=== PATIENT | female | born 1980 | race Caucasian/White ===

== ENCOUNTER → 2022-09-10 10:36 | Outpatient (CLI) | payer OTHER, SELFPAY ==
--- NOTE | ~2022-09-10 | MM_ITS ---
EXAMINATION: MM scrn xuan implant BI w annita HISTORY: Screening mammogram TECHNIQUE: Craniocaudal and mediolateral oblique 3-D tomosynthesis images with implant displacement a nd synthetic 2-D images were generated. Craniocaudal and mediolateral oblique views of the breasts wi thout implant displacement were obtained using full field digital mammography. CAD analysis was submi tted and interpreted. COMPARISON: No prior mammogram is available for comparison at this institution. BREAST PARENCHYMAL COMPOSITION: The breasts are heterogeneously dense, which may obscure small masses . FINDINGS: There is no evidence of suspicious mass, calcification, or architectural distortion to sugg est malignancy in either breast. There has been no suspicious interval change. IMPRESSION: 1. No mammographic evidence of malignancy. 2. Recommend routine screening mammography in one year. BI-RADS Category 1: Negative Reviewed, dictated and finalized at location A.
== END ==
PROVIDERS: PCP Family Medicine; Visit Provider Nurse Practitioner Family
DX: Z12.31 Encounter for screening mammogram for malignant neoplasm of breast (principal)
CPT/HCPCS: 77063; 77067

== ENCOUNTER 2023-07-18 10:50 | Emergency (ER) | payer OTHER, SELFPAY ==
--- NOTE | ~2023-07-18 | XR_ITS ---
XR ankle LT min 3V DATE: 07/18/2023 11:16 INDICATION: Injury one day ago. Lateral ankle pain. TECHNIQUE: 4 views COMPARISON: None FINDINGS: No fracture or dislocation of the ankle or disruption of the ankle mortise. No periosteal r eaction or bone destruction. Slight posterior calcaneal enthesopathy. IMPRESSION: No fracture Reviewed, dictated and finalized at location A. TRO MECHANICAL SOLAR TECHNICIAN IMPRESSION: No fracture
[2023-07-18 10:56] VITALS: BP 130/84; PULSE 96; RESP 18; TEMP 36; O2SAT 100
--- NOTE | 2023-07-18 11:35 | ED.GENADULT ---
HPI - General Adult General Chief complaint: Extremity Injury, Lower Stated complaint: left ankle injury Time Seen by Provider: 07/18/23 10:57 Source: patient Mode of arrival: ambulatory Limitations: no limitations History of Present Illness HPI narrative: This is a 43-year-old female who is presenting to the ED for chief complaint of left ankle injury that occurred last night. Reports that she was moving a dresser and accidentally stumbled wall stairs. She feels that she may have rolled her ankle. Endorses swelling and bruising. Pain continues despite ice and ibuprofen. Denies any further sites of pain or injury. Denies numbness, weakness Related Data Home Medications Medication Instructions Recorded Confirmed tocilizumab 162 mg/0.9 mL 162 mg subcut .Biweekly 03/14/22 07/14/23 subcutaneous pen injector (Actemra ACTPen) Allergies Allergy/AdvReac Type Severity Reaction Status Date / Time No Known Allergies Allergy Verified 07/18/23 11:03 Review of Systems Review of Systems: All systems as dictated in HPI [facility] Past Medical History Medical History (Updated 07/18/23 @ 12:24 by Dionisio Trinidad PA-C) Bacterial conjunctivitis of left eye Bilateral hand numbness Bilateral hand swelling BMI 21.0-21.9, adult BMI 22.0-22.9, adult HPV test positive (~2014) Influenza Neck pain Rheumatoid arthritis of unspecified site with involvement of other organs and systems Screening for diabetes mellitus Screening for thyroid disorder Screening, lipid Swollen R knee URI, acute Vitamin D deficiency Surgical History Surgical History H/O LEEP (06/16/08) LEEP bx -hpv H/O right breast biopsy (11/09/12) right breast biopsy benign History of colposcopy (10/16/14) colposcopy bx / benign History of gynecological procedure (10/18/14) paragard insertion History of gynecological procedure (05/17/14) iud removal History of orthopedic surgery (04/21/17) right knee History of orthopedic surgery (05/11/03) right shoulder History of orthopedic surgery (05/11/97) right and left knee S/P breast biopsy, left (05/11/08) left breast bopsy Benign S/P breast biopsy, right (07/17/15) right breast lump removed- benign Family History Family History Father Cerebrovascular accident Mother Rheumatoid arthritis Sibling No problems noted. Grandparent Carcinoma of colon maternal grandmother Social History Social History Smoking status: Former smoker Tobacco type: cigarettes Second hand tobacco smoke exposure: No Smoking end date: 09/09/15 Alcohol intake: current Drinks per week: 5 Substance use: never Substance use type: does not use Do You Feel Safe in your Home?: Yes Lack of Transportation: No Lack of Food: Never True Current Housing: I Have Housing Concerned About Future Housing: No Difficulty Paying Gas/Electric Bills: No Difficulty Paying for Meds: No Currently Unemployed: No Education: Bachelor's Degree Difficulty w/ Childcare or Family Care: No Living arrangements: with family Additional living arrangements comments: Occupation/Education: occupation 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 Gender identity (if verbalized by the patient): Female Sexual Orientation (if Verbalized by the Patient): Straight or Heterosexual Exam Narrative: GENERAL: Well-appearing, well-nourished, and in no acute distress. MSK: Mild swelling and bruising to the left ankle joint. Tenderness laterally to the left ankle joint. No tenderness or swelling throughout the foot. Neurovascularly intact distally SKIN: Mild ecchymosis to the left ankle. No rash or wounds. NEURO: Alert and oriented x3. No focal deficits. PSYCH: Normal mood and affect. Co
[2023-07-18] MEDS: KETOROLAC 30 MG/ML VIAL (*BKC) IM (11:41)
--- NOTE | 2023-07-18 11:46 | PC.NURSE ---
pt brought their own crutches and sharath wrap today. no need to charge pt for crutches or sharath wrap
[2023-07-18 12:35] VITALS: BP 116/73; PULSE 62; RESP 18; TEMP 36.8; O2SAT 100
== END 2023-07-18 12:28 | disposition home or self-care (01) ==
PROVIDERS: Emergency Provider Physician Assistant; PCP Family Medicine
DX: S93.402A Sprain of unspecified ligament of left ankle, initial encounter (principal); S96.912A Strain of unspecified muscle and tendon at ankle and foot level, left foot, initial encounter; Z87.891 Personal history of nicotine dependence; X50.0XXA Overexertion from strenuous movement or load, initial encounter
CPT/HCPCS: 73610; 96372; 99283; J1885

== ENCOUNTER 2023-10-06 09:13 | Outpatient (CLI) | payer OTHER, SELFPAY ==
--- NOTE | ~2023-10-06 | MM_ITS ---
EXAMINATION: MM scrn xuan implant BI w annita HISTORY: Screening mammogram TECHNIQUE: Craniocaudal and mediolateral oblique 3-D tomosynthesis images with implant displacement a nd synthetic 2-D images were generated. Craniocaudal and mediolateral oblique views of the breasts wi thout implant displacement were obtained using full field digital mammography. CAD analysis was submi tted and interpreted. COMPARISON: 09/11/2023. BREAST PARENCHYMAL COMPOSITION: Dense: The breasts are heterogeneously dense, which may obscure small masses FINDINGS: There is no evidence of suspicious mass, calcification, or architectural distortion to sugg est malignancy in either breast. There has been no suspicious interval change. IMPRESSION: 1. No mammographic evidence of malignancy. 2. Recommend routine screening mammography in one year. BI-RADS Category 1: Negative Reviewed, dictated and finalized at location B.
== END 2023-10-06 09:14 | disposition home or self-care (01) ==
PROVIDERS: PCP Family Medicine; Visit Provider Obstetrics & Gynecology
DX: Z12.31 Encounter for screening mammogram for malignant neoplasm of breast (principal)
CPT/HCPCS: 77063; 77067

== ENCOUNTER 2025-01-11 16:01 | Outpatient (CLI) | payer OTHER, SELFPAY ==
--- OUTSIDE RECORDS SUMMARY | 2008-10-11 05:00 | XMS_ITS | Continuity of Care Document ---
Author Organization [facility] [address] [place] [address] [facility] [address] [place] [address] Phone Care Team Providers Care Excelsior Picker Name Role Phone LuisTommy craig Unavailable Unavailable Procedures Procedure Date Eye Exam, New Patient Advance Directives Directive Yes / No Effective Date File Name No Information Encounters Encounter Description Practice Location Reason(s) For Visit Diagnoses Date Provider Providers Copied on Encounter [facility], [address] [place] [address] [address], [place], [place], [id number], [place] tel:[phone] [facility] No Information 3-200 9 Yasmany Tommy. [address] [facility] [facility] [address], [place], [address], [place]. tel:[phone] Family History Family Member Type Diagnosis Age At Onset No Information Payers Payer name Insurance type Covered green party ID Authoriza tion(s) [facility] Out Of State [id number] Social History Type Description Quantity Date Captured Comments Sex Female Smoking Status No Information Chief Complaint And Reason For Visit No Information Reason For Referral Reason For Referral No Information History Of Present Illness Encounter Date Complaint History Of Prese nt Illness No Information Functional Status Date Functional Assessmen t No Information Instructions Date Instruction Additional Infor mation No Information Assessments Type Assessment Date No Information Patient Care Teams Name Effective Dates (start - stop) Status Members No Information
--- OUTSIDE RECORDS SUMMARY | 2017-08-31 11:06 | XMS_ITS | Continuity of Care Document ---
Author Organization [facility] Address [address] [place] [address] [address] [place] [address] Phone Care Team Providers Care Director Of Corporate Marketing Name Role Phone Ted Armijo PT Unavailable Unavailable Procedures Procedure Date Therapeutic Exercise Therapeutic Activities Therapeutic Exercise Therapeutic Activities Neuromuscular Re-Ed Therapeutic Exercise Therapeutic Activities Neuromuscular Re-Ed Manual Therapy Therapeutic Exercise Therapeutic Activities Neuromuscular Re-Ed Manual Therapy Therapeutic Exercise Therapeutic Activities Neuromuscular Re-Ed Manual Therapy Therapeutic Exercise Therapeutic Activities Neuromuscular Re-Ed Manual Therapy Therapeutic Exercise Therapeutic Activities Neuromuscular Re-Ed Manual Therapy Hot or Cold Pack Therapeutic Exercise Therapeutic Activities Neuromuscular Re-Ed Manual Therapy Therapeutic Exercise Therapeutic Activities Neuromuscular Re-Ed Manual Therapy Hot or Cold Pack Progress Note Therapeutic Exercise Neuromuscular Re-Ed Manual Therapy Hot or Cold Pack Electrical Stimulation Therapeutic Exercise Neuromuscular Re-Ed Manual Therapy Hot or Cold Pack Progress Note Therapeutic Exercise Therapeutic Activities Neuromuscular Re-Ed Manual Therapy Hot or Cold Pack Therapeutic Exercise Neuromuscular Re-Ed Manual Therapy Hot or Cold Pack Therapeutic Exercise Therapeutic Activities Neuromuscular Re-Ed Manual Therapy Hot or Cold Pack Therapeutic Exercise Neuromuscular Re-Ed Manual Therapy Hot or Cold Pack Electrical Stimulation Therapeutic Exercise Neuromuscular Re-Ed Manual Therapy Hot or Cold Pack Electrical Stimulation Therapeutic Exercise Neuromuscular Re-Ed Manual Therapy Hot or Cold Pack Electrical Stimulation PT Evaluation Low Complexity Therapeutic Exercise Manual Therapy Hot or Cold Pack Electrical Stimulation Advance Directives Directive Yes / No Effective Date File Name No Information Encounters Encounter Description Practice Location Reason(s) For Visit Diagnoses Date Provider Providers Copied on Encounter [facility] [employer] [address], [place], [place], [id number], [place] tel:[phone] [place] No Information 8 melida Ted. [address] [facility], [address], [place], [address], [place]. tel: [phone] [facility], [place], [place], [address], tel:[phone] [place] No Information Mar-0 8-201 8 Thuet Ted. [address] [place] [address], [address], [place], [place], [facility], . tel:[phone] Referring Provider: Tyler Quijano [facility], [place], [address]. tel:[phone] [place] [address], [address] [place], [place] [address], [place], [place], [address], tel:[phone] [place] No Information Mar-0 6-201 8 Thuet Ted. [address] [place] [address], [address], [place], [place], [facility], . tel:[phone] Referring Provider: Tyler Quijano [facility], [place], [address]. tel:[phone] [place] [address], [address] [place], [place] [address], [place], [place], [address], [place] tel:[phone] [place] No Information Mar-0 1-201 8 Thuet Ted. [address] [place] [address], [address], [place], [facility], [place]. tel:[phone] Referring Provider: Tyler Quijano [facility], [place], [address]. tel:[phone] [place] [address], [address] [place], [place] [address], [place], [place], [address], [place] [phone] [place] No Information Feb-2 7-201 8 Thuet Ted. [address] [place] [address], [address], [place], [facility], [place]. tel:[phone] Referring Provider: Tyler Quijano [facility], [place], [address]. tel:[phone] [place] [address], [address] [place], [place] [address], [place], [address], [place] tel:[phone] [place] No Information Feb-2 3-201 8 Thuet Ted. [address] [place] [address], [address], [place], [facility], [place]. tel: [phone] Referring Provider: Jono Yousif, [address] [facility], [place], [address]. tel:[phone] [place], [place] [address], [place], [place], [address], tel:[phone] [place] No Information Feb-2 1-201 8 Thuet Ted. [address] [place] [address], [address], [place], [facility], . tel: [phone] Referring Provider: Jono Yousif, [address] [facility], [place], [address]. tel:[phone] [place], [place] [address], [place], [place], [address], [phone] [place] No Information Feb-1 2-201 8 Thuet Ted. [address] [place] [address], [address], [place], [facility], . tel: [phone] Referring Provider: Jono Yousif, [address] [facility], [place], [address]. tel:[phone] [place], [place] [address], [place], [place], [address], tel:[phone] [place] No Information Feb-0 9-201 8 Thuet Ted. [address] [place] [address], [address], [place], [facility], . tel: [phone] Referring Provider: Jono Yousif, [address] [facility], [place], [address]. tel:[phone], [place], [address], tel:[phone] [place] No Information Feb-0 6-201 8 Thuet Ted. [address] [place] [address], [address], [place], [facility], . tel: [phone] Referring Provider: Dawna Quijano1 [place], [address]. tel:[phone] [place] [address] [facility] [address], [place], [place], [address], [place] tel:[phone] [place] No Information 8 Thuet Ted. [address] [place] [address], [address], [place], [address], . tel: [phone] Referring Provider: Jono Yousif, yTler [facility], [place], [address]. tel:[phone] [place] [address] [address], [place], [place], [address], [place] tel:[phone] [place] No Information 8 Thuet Ted. [address] [place] [address], [address], [place], [address], . tel: [phone] Referring Provider: Tyler Quijano [facility], [place], [address]. tel:[phone] [place] [address] [address], [place], [place], [address], [place] tel:[phone] [place] No Information 8 Thuet Ted. [address] [place] [address], [address], [place], [address], . tel: [phone] Referring Provider: Tyler Quijano [facility], [place], [address]. tel:[phone] [place] [id number] [address], [place], [place], [address], [place] tel:[phone] [place] No Information 8 Thuet Ted. [address] [place] [address], [address], [place], [address], . tel: [phone] Referring Provider: Tyler Quijano [facility], [place], [address]. tel:[phone] [place], [place] [address] [address], [place], [address], [place] tel:[phone] [place] No Information 8 Thuet Ted. [address] [facility], [address], [place], [facility], . tel: [phone] Referring Provider: Jono Yousif, Tyler [facility], [place], [address]. tel:[phone] [place] [address] [address] [facility] [address], [place], [place], [address], [place] tel:[phone] [place] No Information 8 Thuet Ted. [address] [place] [address], [address], [place], [facility], . tel: [phone] Referring Provider: Jono Yousif, [place], [address]. tel:[phone] [place] [address] [address] [address], [place], [place], [address], tel:[phone] [place] No Information 8 Thuet Ted. [address] [place] [address], [address], [place], [address], . tel:[phone] Referring Provider: Jono Yousif, [place], [address]. tel:[phone] [place] [address] [address], [place], [place], [address], [place] tel:[phone] [place] No Information 8 Thuet Ted. [address] [place] [address], [address], [place], [address], [place]. tel:[phone] Referring Provider: [place], [address]. tel:[phone] [place] [address], [address], [place], [place], [address], [place] [phone] [place] Oth tear of medial meniscus, current injury, r knee, subsPain in right kneeEffusion, right kneeStiffness of right knee, not elsewhere classifiedMuscle weakness (generalized)Enco unter for other specified surgical aftercareOther abnormalities of gait and mobility 8 Zofia Jean. [address] [facility], [address], [place], [address], [place]. tel: [phone] Referring Provider: Jono Yousif, [facility], [facility] [place], [address]. tel:[phone] Family History Family Member Type Diagnosis Age At Onset No Information Payers Payer name Insurance type Covered green party ID Authoriza tion(s) [facility] CI [id number] Social History Type Description Quantity Date Captured [...]
--- NOTE | ~2025-01-11 | MM_ITS ---
EXAMINATION: MM scrn xuan implant BI w annita HISTORY: Screening TECHNIQUE: Craniocaudal and mediolateral oblique 3-D tomosynthesis images were obtained and synthetic 2-D images were generated. CAD analysis was submitted and interpreted. Implant displacement views were obtained. COMPARISON: No prior mammogram is available for comparison at this institution. BREAST PARENCHYMAL COMPOSITION: The breasts are heterogeneously dense, which may obscure small masses. FINDINGS: There is no evidence of suspicious mass, calcification, or architectural distortion to suggest malignancy. There has been no suspicious interval change. Grossly stable bilateral breast implants. IMPRESSION: 1. No mammographic evidence of malignancy. Recommend routine screening mammography in one year. BI-RADS Category 2: Benign finding(s) Reviewed, dictated and finalized at location Q. IMPRESSION: 1. No mammographic evidence of malignancy. Recommend routine screening mammogra phy in one year. BI-RADS Category 2: Benign finding(s)
--- OUTSIDE RECORDS SUMMARY | 2025-01-11 17:07 | XMS_ITS | Clinical Summary ---
Author Organization [facility] Address [address] [place] [address] Care Team Providers Care Valuer Name Role Phone Brandon Scales MD Primary Care Provider [phone] Medications predniSONE 10 mg tablet Tapering Dose; 60 mg Day 1 50 mg Day 2 40 mg Day 3 30 mg Day 4 20 mg Day 5 10 mg Day 6 21 tablet 03/30/2017 Active Social History Tobacco Use Types Packs/Day Years Used Date Smoking Tobacco: Never Assessed Comments Unknown Sex and Gender Information Value Date Recorded Sex Assigned at Not on file Legal Sex Female 6:06 PM CDT Gender Identity Not on file Sexual Orientation Not on file Last Filed Vital Signs Vital Sign Reading Time Taken Comments Blood Pressure 158/94 03/30/2017 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 Pulse 102 03/30/2017 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 Temperature 36.5 C (97.7 F) 03/30/2017 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 Respiratory Rate 20 03/30/2017 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 Oxygen Saturation 100% 03/30/2017 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 Inhaled Oxygen Concentration - - Weight 56.7 kg (125 lb) 03/30/2017 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 Height 165.1 cm (5' 5) 03/30/2017 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 Body Mass Index 20.8 03/30/2017 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 Plan of Treatment Health Maintenance Due Date Last Done Comments Cervical Cancer Screening Pa p Smear (Age 30 to 64) Every 3 Years 1981 Annual Physical 1984 Hepatitis C 07/14/1999 DTaP, Tdap and Td Vaccines ( 1 - Tdap) 2000 Hepatitis B Vaccines (1 of 3 - 19+ 3-dose series) 2000 HPV Vaccines (1 - 3-dose SCD M series) 2008 Cervical Cancer Screening Pa p with HPV Testing (Age 30 to 64) Every 5 Years 07/14/2011 Cervical Cancer Screening with HPV 07/14/2011 Mammogram Screening 2021 COVID-19 Vaccine (1 - 2023-2 5 season) 2025 Meningococcal B Vaccine Aged Out No l onger eligible based on patient's age to complete this topic Meningococcal Vaccine Aged Out No tory gonzalez eligible based on patient's age to complete this topic Pneumococcal Vaccine: Pediat rics (0 to 5 Years) and At-Risk Patients (6 to 49 Years) Aged Out No longer eligible b ased on patient's age to complete this topic RSV Immunizations Under 20 Months Aged Out No longer eligible based on patient's age to complete this topic Insurance Care Teams Valuer Relationship Specialty Start Date End Date Brandon Scales MD [address] [place], [place] [id number] PCP - General FAMILY PRACTICE 03/30/17
--- OUTSIDE RECORDS SUMMARY | 2025-01-11 17:07 | XMS_ITS | Encounter Summary ---
Author Organization [facility] Address [address] [facility] [place] [address] Care Team Providers Care Recovery Coordinator Name Role Phone Jennifer Guzman MD Primary Care Provider Encounter Details Date Type Department Care Team (Late st Contact Info) Description 02/11/2022 Lab Requisition [facility] [address] [facility] [place] [place] [id number] Troy Raymundo MD [address] [facility] [place] [address] Social History Tobacco Use Types Packs/Day Years Used Date Smoking Tobacco: Former Cigarettes Alcohol Use Standard Drinks/Week Comments Yes 0 (1 standard drink = 0.6 oz pur e alcohol) Comments Unknown Sex and Gender Information Value Date Recorded Sex Assigned at Not on file 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 Gender Identity Not on file Sexual Orientation Not on file documented as of this encounter Plan of Treatment Not on file documented as of this encounter Procedures Procedure Name Priority Date/Time Associated Diagnosis Comments DERMATOPATHOLOGY Routine 02/10/2022 12:0 0 AM CDT documented in this encounter Results * DERMATOPATHOLOGY (02/10/2022 12:00 AM CDT) Case Report Dermatopathology Report Case: [id number] Authorizing Provider: Troy Raymundo MD Collected: 02/10/2022 12:00 AM Ordering Location: [facility] Received: 02/11/2022 04:57 PM Pathologist: Jeanine Yousif MD Specimen: Skin, right upper thigh 12:15 PM CDT DERMATOPATHOLOGY LABORATORY Final Diagnosis Specimen A. SKIN, right upper thigh: DERMATOFIBROMA, SUPERFICIAL PORTIONS OF (D23.9) (see microscopic description) 12:15 PM CDT DERMATOPATHOLOGY LABORATORY at 1215 CDT Clinical History Nevus vs. BCC. Path# [id number] 12:15 PM CDT DERMATOPATHOLOGY LABORATORY Gross Description Specimen A: Received is one formalin filled container labeled with the patient's name and designated right upper thigh. The specimen consists of a shave biopsy measuring [id number]. Jar 0. 12:15 PM CDT DERMATOPATHOLOGY LABORATORY Microscopic Description Specimen A. SKIN, right upper thigh: There is epidermal hyperplasia. There are underlying superficial portions of dermis with fibrohistiocytic cells in haphazard array among coarse collagen bundles. 12:15 PM CDT DERMATOPATHOLOGY LABORATORY Disclaimer An external and internal positive and negative controls are appropriate for the histochemical, immunohistochemical and immunofluorescence stain(s) in this case (if any), except where stated explicitly. The performance characteristics of the stain(s) cited in this report were developed and its performance characteristic determined by the Dermatopathology Laboratory at [facility], directed by Dr. Jose Luis Perry. These tests need not be, and therefore are not, approved by the [place] Food and Drug Administration. The tests are used for clinical purposes. Billing Codes Specimen Charges Stain Charges 86902 1 12:15 PM CDT DERMATOPATHOLOGY LABORATORY Embedded Images 12:15 PM CDT DERMATOPATHOLOGY LABORATORY Pathology/Cytolog y TISSUE SPECIMEN FROM SKIN / Unknown 02/10/2022 02/11/2022 4:57 PM CDT us Troy Raymundo MD LAB - PATHOLOGY/CYTOLOGY ORDER DAVID Final Result DERMATOPATHOLOGY LABORATORY [facility] - Department of Dermatology [address], [address] [phone] documented in this encounter Visit Diagnoses Not on filedocumented in this encounter Care Teams Recovery Coordinator Relationship Specialty Start Date End Date Jennifer Guzman MD [address] [place] [phone] PCP - General 02/27/15 documented as of this encounter
--- OUTSIDE RECORDS SUMMARY | 2025-01-11 17:07 | XMS_ITS | Clinical Summary ---
Author Organization [facility] Address [address] [place] [address] Care Team Providers Care Lieutenant Shift Supervisor Name Role Phone Jennifer Guzman MD Primary Care Provider Source Comments [facility],non-owned Affiliates and Associated Physician Practices is amultiple site organization consisting of ambulatory clinics and hospital sitesin [place], [place], [place] and [place]. This disclosure is being madepursuant to the Care Everywhere program and may not contain all information available regarding this patient. 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 016 Overview (08/10/2017): ICD-10 Update Family History Medical History Relation Name Comments Amblyopia Neg Hx Blindness Neg Hx Cataract Neg Hx Glaucoma Neg Hx Macular Degeneration Neg Hx Retinal Detachment Neg Hx Social History Tobacco Use Types Packs/Day Years Used Date Smoking Tobacco: Former Cigarettes Alcohol Use Standard Drinks/Week Comments Yes 0 (1 standard drink = 0.6 oz pur e alcohol) Comments Unknown Sex and Gender Information Value Date Recorded Sex Assigned at Not on file Legal Sex Female 5:57 PM [employer] Gender Identity Not on file Sexual Orientation Not on file Plan of Treatment Health Maintenance Due Date Last Done Comments LIPID TESTING 1981 MAMMOGRAM 1981 HIV SCREENING 1996 HEPATITIS C SCREENING 07/09/1999 DTAP/TDAP/TD VACCINES (1 - Tdap) 2000 HEPATITIS B VACCINE (1 of 3 - 19+ 3-dose series) 2000 PAP SMEAR 2002 HPV VACCINE (1 - 3-dose SCDM series) 2008 COVID-19 VACCINE (1 - 2023-2 5 season) 2024 DEPRESSION SCREENING 05/11/2024 INFLUENZA VACCINE (#1) 2025 ZOSTER VACCINE (1 of 2) 07/14/2031 HIB VACCINE Aged Out No longer eligi ble based on patient's age to complete this topic MENINGOCOCCAL (Group B) VACC INE SHARED DECISION-MAKING Aged Out No longer eligibl e based on patient's age to complete this topic MENINGOCOCCAL GROUPS A/C/Y/W VACCINE Aged Out No longer eligible b ased on patient's age to complete this topic PNEUMOCOCCAL VACCINE Aged Out No long er eligible based on patient's age to complete this topic Care Teams Lieutenant Shift Supervisor Relationship Specialty Start Date End Date Jennifer Guzman MD [address] [place] [phone] PCP - General 02/27/15
== END 2025-01-11 16:02 | disposition home or self-care (01) ==
LOC: ANHFOHIMG 16:03
PROVIDERS: PCP Family Medicine; Visit Provider Obstetrics & Gynecology
DX: Z12.31 Encounter for screening mammogram for malignant neoplasm of breast (principal)
CPT/HCPCS: 77063; 77067